=== PATIENT | female | born 1960 | race Two or more races ===

== ENCOUNTER 2025-02-15 20:40 | Emergency (ER) | payer OTHER ==
[~2025-02-15] VITALS: Ht 160 cm; Wt 73.5 kg
[2025-02-15] MEDS ORDERED: ONDANSETRON HCL/PF 4 MG/2 ML VIAL ONE (21:14)
[2025-02-15] MEDS: IV NS 0.9% 1,000 ML BAG IV ONE (21:15)
[2025-02-15] MEDS: ONDANSETRON HCL/PF 4 MG/2 ML VIAL IVP ONE (21:15)
[2025-02-15 21:25] LABS: PLATELET COUNT (AUTO) 267 K/uL (150-450); RED BLOOD CELL COUNT(AUTO) 4.48 MIL/uL (4.0-5.2); RED CELL DISTRIBUTION WIDTH 14.1 % (11.5-15.0); WHITE BLOOD COUNT (AUTO) 8.7 K/uL (4.3-11.0)
[2025-02-15 21:39] LABS: CALCIUM, SERUM 8.7 mg/dL (8.5-10.1); CREATININE 1.1 mg/dL (0.6-1.3); SODIUM SERUM 142 mmol/L (136-145); UREA NITROGEN, BLOOD 17 mg/dL (7-18)
[2025-02-15 21:43] LABS: PHOSPHORUS 3.7 mg/dL (2.5-4.9)
[2025-02-15 22:37] VITALS: BP 93/71; TEMP 98; O2SAT 100
== END 2025-02-15 22:37 | disposition home or self-care (01) ==
LOC: ER 20:45
DX: R55 Syncope and collapse (principal); R00.0 Tachycardia, unspecified; R11.2 Nausea with vomiting, unspecified; Z88.5 Allergy status to narcotic agent
CPT/HCPCS: 99285; 96374; 71045; 96361; 93005; 85025; 80048; 83735; 84100; 36415; 84443; 84484; 82962; J2405; J7030